=== PATIENT | female | born 1990 | race Caucasian/White ===

== ENCOUNTER 2022-08-07 20:37 | Emergency (ER) | payer BC ==
[~2022-08-07] VITALS: Ht 167.6 cm; Wt 119.7 kg
[2022-08-07 20:49] VITALS: BP_SYST 109
[2022-08-07] MEDS ORDERED: DIATR MEGLU/DIATRIZ SOD 30 ML SOLUTION PO ONE (21:37)
[2022-08-07 21:41] LABS: BASOPHILS % (AUTO) 0.2 % (0.0-2.0); EOSINOPHILS # (AUTO) 0.1 K/uL (0.0-0.4); EOSINOPHILS % (AUTO) 1.1 % (0.0-4.0); HEMATOCRIT 35.9 % (36-48); HEMOGLOBIN 12.2 g/dL (12.0-16.0); LYMPHOCYTES # (AUTO) 1.3 K/uL (1.0-5.5); LYMPHOCYTES % (AUTO) 14.2 % (20.5-51.5); MEAN CORPUSCULAR HEMOGLOBIN 27 pg (27-31); MEAN CORPUSCULAR HGB CONC 34 % (32-36); MEAN CORPUSCULAR VOLUME 79 fL (79.0-98.0); MONOCYTES # (AUTO) 0.6 K/uL (0.0-1.0); MONOCYTES % (AUTO) 6.7 % (1.7-9.3); NEUTROPHILS # (AUTO) 7.2 K/uL (1.8-7.7); NEUTROPHILS % (AUTO) 77.8 % (40.0-70.0); PLATELET COUNT (AUTO) 370 K/uL (130-430); RED BLOOD CELL COUNT(AUTO) 4.54 MIL/uL (4.2-6.2); RED CELL DISTRIBUTION WIDTH 13.8 % (9.0-15.0); WHITE BLOOD COUNT (AUTO) 9.2 K/uL (4.8-10.8)
[2022-08-07] MEDS ORDERED: ONDANSETRON HCL 4 MG/2 ML VIAL IVP ONE (21:45)
[2022-08-07 21:49] LABS: BILIRUBIN,URINE NEGATIVE (NEGATIVE); BLOOD, URINE NEGATIVE (NEGATIVE); CLARITY/URINE CLEAR (CLEAR); COLOR,URINE YELLOW (YELLOW); GLUCOSE,URINE NEGATIVE (NEGATIVE); KETONES,URINE NEGATIVE (NEGATIVE); LEUKOCYTE ESTERASE ,URINE NEGATIVE (NEGATIVE); NITRITE, URINE NEGATIVE (NEGATIVE); PH,URINE 5.5 (5.0-8.0); PROTEIN URINE NEGATIVE (NEGATIVE); UROBILINOGEN,URINE 0.2 (0.2-1.0)
[2022-08-07 22:08] LABS: ANION GAP 10 (5-15); CALCIUM 9.1 mg/dL (8.4-11.0); CHLORIDE 104 mmol/L (98-107); CREATININE 0.73 mg/dL (0.55-1.30); GLUCOSE 115 mg/dL (70-99); UREA NITROGEN, BLOOD 16 mg/dL (8-21)
[2022-08-07 22:13] LABS: ALANINE AMINOTRANSFERASE 28 U/L (12-78); ALBUMIN 3.9 g/dL (3.4-4.8); AMYLASE 60 U/L (0-100); ASPARTATE AMINOTRANSFERASE 12 U/L (10-37); C-REACTIVE PROTEIN QUANT 0.8 mg/dL (0-0.5); LACTATE DEHYDROGENASE 163 U/L (81-234); LIPASE 104 U/L (73-393); TOTAL BILIRUBIN 0.5 mg/dL (0.0-1.0)
[2022-08-07] MEDS ORDERED: NACL 0.9% 2,000 ML IV ONE (22:15)
[2022-08-07] MEDS ORDERED: MORPHINE 4 MG INJ. 4 MG/ML VIAL IVP ONE (22:15)
[2022-08-07 22:18] LABS: GFR AFRICAN AMERICAN 118 mL/min (>90)
[2022-08-07 22:27] LABS: ACETONE, SERUM NEGATIVE (NEGATIVE)
[2022-08-07] MEDS ORDERED: LOM2.5 PO (23:47)
[2022-08-07] MEDS ORDERED: ONDA-8 TL (23:47)
[2022-08-07 23:53] VITALS: BP_SYST 134
== END 2022-08-07 23:53 | disposition home or self-care (01) ==
LOC: SED 20:37
DX: K52.9 Noninfective gastroenteritis and colitis, unspecified (principal); E86.0 Dehydration; R11.2 Nausea with vomiting, unspecified; R53.1 Weakness; Z79.899 Other long term (current) drug therapy
CPT/HCPCS: 99285; 74176; 96374; 96361; 80053; 82009; 82150; 84703; 83615; 83690; 85025; 86140; 36415; 76376; 83605; 81003; Q9964; J2405; J7030